=== PATIENT | female | born 1985 ===

== ENCOUNTER 2024-04-22 18:38 | Emergency (ER) | payer OTHER ==
[2024-04-22] MEDS: Take Home: Cephalexin 500 MG Cap, 6 Cap Pack PO ONE (19:43)
[2024-04-22] MEDS: Cephalexin 500 MG Cap PO ONE (19:44)
[2024-04-22] MEDS: traMADol 50 MG Tab PO ONE (19:44)
[2024-04-22] MEDS: Take Home: traMADol 50 MG, 4 Tab Pack PO ONE (19:46)
[2024-04-22] MEDS: Bacitracin/Neomycin/Polymyxin B Oint 0.9 GM U/D Packet TOP ONE (19:46)
== END 2024-04-22 20:45 | disposition home or self-care (01) ==
LOC: LL.ED 18:38
DX: S51.851A Open bite of right forearm, initial encounter (principal); S51.852A Open bite of left forearm, initial encounter; S61.551A Open bite of right wrist, initial encounter; S61.552A Open bite of left wrist, initial encounter; S61.259A Open bite of unspecified finger without damage to nail, initial encounter; Z88.0 Allergy status to penicillin; Z79.890 Hormone replacement therapy; Z79.899 Other long term (current) drug therapy; W54.0XXA Bitten by dog, initial encounter
CPT/HCPCS: 73120-50; 99283; A9270-GY